=== PATIENT | female | born 1985 | race Caucasian/White ===

== ENCOUNTER 2022-02-01 16:39 | Inpatient (IN) ==
[2022-02-01] MEDS ORDERED: LACTATED RINGER'S 1,000 ML IV PRN (17:33)
[2022-02-01] MEDS ORDERED: OXYTOCIN 30 UNITS/500 ML BAG IV PRN (17:33)
--- NOTE | 2022-02-01 17:41 | Anesthesiology Consultation ---
Date of Service February 01, 2022 History Height/Weight Height: 5 ft 6 in Weight: 77.111 kg Allergies Allergy/AdvReac Type Severity Reaction Status Date / Time No Known Allergies Allergy Verified 01/29/22 10:03 Medications Home Medications Medication Instructions Recorded Confirmed Last Taken prenat.vits,jud,vtd-[id number]-[id number] 1 tab PO DAILY 01/29/21 01/29/22 02/01/22 08:00 breast pump #1 ea 01/22/22 01/29/22 Unknown Past Medical History Medical History History of chicken pox Psoriasis Past Family History Family History Grandfather (Maternal) Colorectal cancer great grandfather Denies family history of Ovarian cancer Breast cancer Past Surgical History Surgical History S/P wisdom tooth extraction Social History Smoking Status: Never smoker Hx Alcohol Use: No Hx Substance Use: No Physical Exam Vital Signs Last Vital Signs Temp 36.7 C 02/01/22 16:52 Pulse 113 H 02/01/22 17:37 Resp 20 02/01/22 16:52 BP 144/80 H 02/01/22 17:37 Pulse Ox 97 02/01/22 17:32
[2022-02-01 17:59] LABS: Hematocrit (blood only) 39.1 % (37-47); Hemoglobin 13.9 g/dL (12.0-16.0); Mean Corpuscular Hemoglobin 31.9 pg (25-34); Mean Corpuscular Hgb Conc 35.5 g/dL (32-36); Mean Corpuscular Volume 89.7 fL (80-100); Mean Platelet Volume 10.6 fL (7.4-10.4); Platelet Count 167 K/uL (130-400); RDW Standard Deviation 42.5 fL (36.4-46.3); Red Blood Count 4.36 M/uL (4.2-5.4); White Blood Count 14.57 K/uL (4.8-10.8)
[2022-02-01] MEDS ORDERED: SODIUM CHLORIDE 0.9% INJ 10 ML VIAL ONE (18:21)
[2022-02-01] MEDS ORDERED: ePHEDrine sulfate 50 MG/ML AMP ONE (18:21)
[2022-02-01] MEDS ORDERED: BUPIVACAINE 0.25% 30 ML VIAL ONE (18:21)
[2022-02-01] MEDS ORDERED: fentaNYL citrate 100 MCG/2 ML VIAL ONE (18:21)
[2022-02-01] MEDS ORDERED: fentaNYL 2MCG/ML ROPIVACAINE 1.25MG/ML 100 ML BAG EPI ONE (18:22)
--- NOTE | 2022-02-01 18:40 | Anesthesiology Consultation ---
Date of Service February 01, 2022 Assessment & Plan (1) Encounter for pre-operative examination: Chart Review Chart Review: Acceptable Risk for Labor Epidural History Height/Weight Height: 5 ft 6 in Weight: 77.111 kg Allergies Allergy/AdvReac Type Severity Reaction Status Date / Time No Known Allergies Allergy Verified 01/29/22 10:03 Medications Home Medications Medication Instructions Recorded Confirmed Last Taken prenat.vits,jud,xoj-xiff-qdcje 1 tab PO DAILY 01/29/21 01/29/22 02/01/22 08:00 breast pump #1 ea 01/22/22 01/29/22 Unknown Past Medical History Medical History History of chicken pox Psoriasis Past Family History Family History Grandfather (Maternal) Colorectal cancer great grandfather Denies family history of Ovarian cancer Breast cancer Past Surgical History Surgical History S/P wisdom tooth extraction Social History Smoking Status: Never smoker Hx Alcohol Use: No Hx Substance Use: No Physical Exam Vital Signs Last Vital Signs Temp 36.7 C 02/01/22 16:52 Pulse 117 H 02/01/22 18:36 Resp 20 02/01/22 16:52 BP 133/88 02/01/22 18:25 Pulse Ox 92 02/01/22 18:36 Testing Laboratory Results 02/01/22 17:46
[2022-02-01] MEDS ORDERED: ONDANSETRON INJ 2 MG/ML 2 ML VIAL IV PRN (18:56)
[2022-02-01] MEDS ORDERED: NALOXONE HCL 1 MG in SODIUM CHLORIDE 0.9% 1000ML 1,000 ML IV PRN (18:56)
[2022-02-01] MEDS ORDERED: ePHEDrine sulfate 50 MG/ML AMP IV PRN (18:56)
[2022-02-01] MEDS ORDERED: fentaNYL 2MCG/ML ROPIVACAINE 1.25MG/ML 100 ML BAG EPI PRN (18:56)
[2022-02-01] MEDS ORDERED: NALOXONE HCL 0.4 MG/1 ML VIAL/CARP IV PRN (18:56)
--- NOTE | 2022-02-02 00:30 | Delivery Summary ---
Vaginal Delivery Summary Date of Service February 02, 2022 Vaginal Delivery Summary Spontaneous vaginal delivery the patient arrived in active labor and intact membranes at 5 cm 38+ weeks requested epidural and then membranes broke spontaneously she progressed to fully dilated and pushed a baby out in occiput anterior position fluid was clear there was no nuchal cord gentle traction with no excessive force revealed vigorous male cord clamped and cut cord blood obtained placenta removed with gentle traction second-degree tear repaired with 3-0 Vicryl oxytocin but started postdelivery of the placenta estimated blood loss 200 mL sponge and instrument counts correct
[2022-02-02] MEDS ORDERED: DIPHTHERIA/TETANUS/PERTUSSIS 0.5 ML SYR/VIAL IM ONE (00:41)
[2022-02-02] MEDS ORDERED: HYDROCORTISONE ACETATE 25 MG SUPP PR PRN (00:41)
[2022-02-02] MEDS ORDERED: OXYTOCIN 30 UNITS/500 ML BAG IV PRN (00:41)
[2022-02-02] MEDS ORDERED: ACETAMINOPHEN 325 MG TAB PO PRN (00:41)
[2022-02-02] MEDS ORDERED: BENZOCAINE 20% AER SPR 82.5 GM CAN EXT PRN (00:41)
[2022-02-02] MEDS ORDERED: bisacodyL 10 MG SUPP PR PRN (00:41)
[2022-02-02] MEDS ORDERED: oxyCODONE/ACETAMINOPHEN 5mg/325mg TAB PO PRN (00:41)
[2022-02-02] MEDS: IBUPROFEN 600 MG TAB PO PRN ×3 (03:52→15:02)
--- NOTE | 2022-02-02 07:19 | Obstetrical Progress Note ---
Date of Service February 02, 2022 Assessment & Plan (1) Encounter for pre-operative examination: ppd 0, ccc Subjective Ambulation: ambulating normally Voiding: no voiding problems Passing Gas:: Yes Diet Tolerance:: regular diet Lochia:: Small Results & Data ([facility]) Vital Signs (Past 12 Hours) Vital Signs Temp Pulse Pulse Resp BP BP Pulse Ox 02/02/22 03:30 98.6 F 112 H 16 128/70 97 02/02/22 02:27 98.2 F 109 H 18 126/70 02/02/22 02:12 116 H 119/57 L 02/02/22 01:57 114 H 120/58 L 02/02/22 01:42 110 H 120/62 02/02/22 01:27 112 H 117/73 02/02/22 01:12 116 H 118/69 02/02/22 00:57 123 H 18 136/69 02/02/22 00:56 173 H 79 L 02/02/22 00:42 114 H 20 127/59 L 02/02/22 00:27 121 H 18 148/70 H 99 02/02/22 00:22 127 H 97 02/02/22 00:20 129 H 160/67 H 02/02/22 00:17 125 H 97 02/02/22 00:12 152 H 18 97 02/02/22 00:07 168 H 99 02/02/22 00:05 139 H 157/68 H 02/02/22 00:02 140 H 98 02/01/22 23:57 142 H 97 02/01/22 23:52 146 H 98 02/01/22 23:47 166 H 98 02/01/22 23:42 146 H 96 02/01/22 23:37 153 H 96 02/01/22 23:34 135 H 94 02/01/22 23:32 147 H 97 02/01/22 23:27 154 H 97 02/01/22 23:22 147 H 96 02/01/22 23:20 146 H 143/69 H 02/01/22 23:17 141 H 97 02/01/22 23:12 127 H 97 02/01/22 23:07 133 H 143/69 H 97 02/01/22 23:02 129 H 97 02/01/22 22:57 133 H 96 07/03/22 22:52 134 H 96 02/01/22 22:50 142 H 114/65 02/01/22 22:47 134 H 96 02/01/22 22:42 132 H 96 02/01/22 22:37 130 H 96 02/01/22 22:34 134 H 115/62 02/01/22 22:32 141 H 96 02/01/22 22:27 149 H 96 02/01/22 22:23 98.4 F 20 02/01/22 22:22 154 H 97 02/01/22 22:20 130 H 115/63 02/01/22 22:17 126 H 96 02/01/22 22:12 136 H 97 02/01/22 22:07 135 H 98 02/01/22 22:02 117 H 97 02/01/22 21:57 135 H 97 02/01/22 21:52 117 H 97 02/01/22 21:51 125 H 121/75 02/01/22 21:47 121 H 97 02/01/22 21:42 114 H 97 02/01/22 21:37 99 H 97 02/01/22 21:35 105 H 117/77 02/01/22 21:32 100 H 96 02/01/22 21:27 108 H 97 02/01/22 21:22 108 H 98 02/01/22 21:20 103 H 108/73 02/01/22 21:17 102 H 97 02/01/22 21:12 94 H 97 02/01/22 21:07 99 H 98 02/01/22 21:05 88 119/74 02/01/22 21:02 93 H 96 02/01/22 20:57 98 H 97 02/01/22 20:52 92 H 98 02/01/22 20:50 108 H 133/74 02/01/22 20:47 89 97 02/01/22 20:42 86 97 02/01/22 20:37 89 98 02/01/22 20:36 98.6 F 93 H 18 131/79 02/01/22 20:32 93 H 98 02/01/22 20:27 81 98 02/01/22 20:22 83 97 02/01/22 20:21 80 118/67 02/01/22 20:17 79 99 02/01/22 20:12 93 H 97 02/01/22 20:07 85 96 07/03/22 20:06 101 H 116/74 02/01/22 20:02 82 97 02/01/22 19:57 82 98 02/01/22 19:52 88 98 02/01/22 19:50 92 H 108/61 02/01/22 19:47 81 98 02/01/22 19:42 84 99 02/01/22 19:37 96 H 98 02/01/22 19:36 90 115/63 02/01/22 19:32 88 98 02/01/22 19:27 95 H 98 02/01/22 19:22 100 H 97 02/01/22 19:20 93 H 112/61
--- NOTE | 2022-02-02 07:56 | Anesthesia Procedure Note ---
Date of Service February 02, 2022 Anesthesia Post Epidural Note Vital Signs Vital Signs: Temp Pulse Resp BP Pulse Ox 37.0 C 112 H 16 128/70 97 02/02/22 03:30 02/02/22 03:30 02/02/22 03:30 02/02/22 03:30 02/02/22 03:30 Notes Mental Status: alert / awake / arousable Nausea / Vomiting: adequately controlled Pain: adequately controlled Airway Patency, RR, SpO2: stable & adequate BP & HR: stable & adequate Hydration State: stable & adequate Neuraxial Anesthesia: was administered and sensory block is resolving Anesthetic Complications: no major complications apparent and Pt Satisfied with anesthetic care Epidural: Removed without complications and With tip intact
[2022-02-02] MEDS: PRENATAL VITAMIN 1 TAB PO SCH (07:59)
[2022-02-02] MEDS: DOCUSATE SODIUM 100 MG CAP PO SCH ×2 (07:59→21:03)
[2022-02-03] MEDS: IBUPROFEN 600 MG TAB PO PRN ×3 (05:34→18:51)
[2022-02-03 06:34] LABS: Hematocrit (blood only) 34.5 % (37-47); Hemoglobin 11.6 g/dL (12.0-16.0); Mean Corpuscular Hemoglobin 30.8 pg (25-34); Mean Corpuscular Hgb Conc 33.6 g/dL (32-36); Mean Corpuscular Volume 91.5 fL (80-100); Mean Platelet Volume 10.1 fL (7.4-10.4); Platelet Count 146 K/uL (130-400); RDW Coefficient of Variation 13.5 % (11.5-14.5); RDW Standard Deviation 44.9 fL (36.4-46.3); Red Blood Count 3.77 M/uL (4.2-5.4); White Blood Count 13.97 K/uL (4.8-10.8)
[2022-02-03] MEDS: PRENATAL VITAMIN 1 TAB PO SCH (08:20)
[2022-02-03] MEDS: DOCUSATE SODIUM 100 MG CAP PO SCH ×2 (08:21→20:00)
--- NOTE | 2022-02-03 08:29 | Obstetrical Progress Note ---
Date of Service February 03, 2022 Assessment & Plan (1) Encounter for care and examination after delivery: satisfactory progress having some issues so would like to stay until tomorrow AM if possible. Subjective Ambulation: ambulating normally Voiding: no voiding problems Passing Gas:: Yes Diet Tolerance:: regular diet Lochia:: Small Feeding Type:: breast feeding (some latch issues but otherwise doing well. ) Review of Systems All systems reviewed & are unremarkable except as noted in HPI & below Physical Exam Constitutional WD/WN, vitals as above Psychiatric A+Ox3, euthymic affect Genitourinary OB Exam Abdomen: + fundal height Fundus: + firm and + relation to umbilicus (2 below ) Results & Data ([facility]) Vital Signs (Past 12 Hours) Vital Signs Temp Pulse Resp BP Pulse Ox 02/03/22 07:45 97.7 F 84 18 120/84 99 02/03/22 04:00 97.7 F 75 18 113/75 02/03/22 01:29 97.7 F 80 18 100/65
[2022-02-03] MEDS ORDERED: bisacodyL 5 MG TABEC PO SCH (20:00)
[2022-02-04] MEDS: IBUPROFEN 600 MG TAB PO PRN ×2 (01:34→08:06)
--- NOTE | 2022-02-04 07:07 | Obstetrical Progress Note ---
Date of Service February 04, 2022 Assessment & Plan (1) Encounter for care and examination after delivery: Doing well. Plan d/c home. f/u 6 weeks. Day #:: 2 Subjective Ambulation: ambulating normally Voiding: no voiding problems Passing Gas:: Yes Diet Tolerance:: regular diet Lochia:: Small Feeding Type:: breast feeding Feels well. No complaints this am. Physical Exam Constitutional WD/WN, vitals as above Cardiovascular Extremities: no calf tenderness and no edema Gastrointestinal (Abdomen) soft, nt, nd, ff/nt at u Results & Data ([facility]) Vital Signs (Past 12 Hours) Vital Signs Temp Pulse Resp BP 02/04/22 00:00 36.5 C 72 18 113/77 02/03/22 20:00 36.5 C 83 18 113/75
[2022-02-04] MEDS: PRENATAL VITAMIN 1 TAB PO SCH (08:04)
[2022-02-04] MEDS: DOCUSATE SODIUM 100 MG CAP PO SCH (08:04)
== END 2022-02-04 10:30 | disposition home or self-care (01) | DRG 807 ==
LOC: OPB 16:39 → 4S1 16:40 → 4E2 02-02 03:02

== ENCOUNTER 2024-11-29 23:51 | Inpatient (IN) ==
[2024-11-30] MEDS ORDERED: LACTATED RINGER'S 1,000 ML IV PRN (00:09)
[2024-11-30] MEDS ORDERED: LIDOCAINE 1% LOCAL 20 ML VIAL INFIL PRN (00:09)
[2024-11-30] MEDS ORDERED: OXYTOCIN 30 UNITS/NSS 30 UNITS/500 ML BAG IV PRN ×2 (00:09→00:48)
--- NOTE | 2024-11-30 00:25 | Delivery Summary ---
Vaginal Delivery Summary Date of Service November 30, 2024 Vaginal Delivery Summary DIAGNOSES: 1. Coy intrauterine at 39w4d gestation. 2. Spontaneous onset of labor. 3. Group B Streptococcus Neg. PROCEDURE: Spontaneous vaginal delivery without laceration. SURGEON: Odette Nguyen MD. CAKE WASHER: None. ESTIMATED BLOOD LOSS: 100 mL. COMPLICATIONS: None. PLACENTA: Spontaneous and intact with a 3-vessel cord. DISPOSITION: Stable to labor and delivery. DESCRIPTION: The patient arrived in active labor via ER and was pushing involuntarily. I was called by L&D and arrived from home as quickly as possible, however the infant was delivered 5 minutes prior to my arrival at the bedside, with nursing staff in attendance. Per DANIEL Billings it delivered vertex and OA with a compound arm presentation, having one hand alongside the cheek. It was vigorous and moving all extremities immediately upon delivery. The cord was doubly clamped and then cut. The infant was wrapped and attended- to at maternal abdomen by nursery staff. I gloved in for delivery of the placenta, which delivered spontaneously and was noted to be intact and with a 3VC. The cervix, vagina and perineum were examined and were found to be without defect requiring repair. The fundus was firm and lochia minimal immediately after delivery. [facility] Vaginal Delivery Charge Vaginal Delivery Codes: 23308 global code for the antepartum, delivery, and post-
[2024-11-30] MEDS: OXYTOCIN 10 UNITS/ML VIAL ONE (00:33)
[2024-11-30] MEDS ORDERED: ACETAMINOPHEN 325 MG TAB PO PRN (00:48)
[2024-11-30] MEDS ORDERED: HYDROCORTISONE ACETATE 25 MG SUPP PR PRN (00:48)
[2024-11-30] MEDS ORDERED: LACTATED RINGER'S 1,000 ML IV SCH (00:48)
[2024-11-30] MEDS ORDERED: oxyCODONE/ACETAMINOPHEN 5mg/325mg TAB PO PRN (00:48)
[2024-11-30] MEDS ORDERED: DIPHTHER/TETAN/PERTUS Vaccine (Tdap, Adol/Adult) 0.5mL IM ONE (00:48)
[2024-11-30] MEDS ORDERED: bisacodyL 10 MG SUPP PR PRN (00:48)
[2024-11-30] MEDS ORDERED: BENZOCAINE 20% SPRY 85 APPLN/85 GM CAN EXT PRN (00:48)
[2024-11-30 00:56] LABS: Hematocrit (blood only) 40.2 % (37.0-47.0); Hemoglobin 13.9 g/dl (12.0-16.0); Mean Corpuscular Hemoglobin 30.8 pg (25.0-34.0); Mean Corpuscular Hgb Conc 34.6 g/dL (32.0-36.0); Mean Corpuscular Volume 89.1 fL (80.0-100.0); Mean Platelet Volume 11.1 fL (9.4-12.4); Platelet Count 110 K/uL (130-400); RDW Coefficient of Variation 12.8 % (11.5-14.5); RDW Standard Deviation 41.3 fL (36.4-46.3); Red Blood Count 4.51 M/uL (4.20-5.40)
[2024-11-30] MEDS: PRENATAL VITAMIN 1 TAB PO SCH (08:35)
[2024-11-30] MEDS: IBUPROFEN 600 MG TAB PO PRN (08:35)
[2024-11-30] MEDS: DOCUSATE SODIUM 100 MG CAP PO SCH (08:36)
[2024-11-30 10:15] VITALS: RESP 16
[2024-12-01 00:24] VITALS: O2SAT 96
[2024-12-01 07:07] LABS: Hematocrit (blood only) 41.2 % (37.0-47.0); Hemoglobin 14.1 g/dl (12.0-16.0); Mean Corpuscular Hemoglobin 30.8 pg (25.0-34.0); Mean Corpuscular Hgb Conc 34.2 g/dL (32.0-36.0); Mean Platelet Volume 10.5 fL (9.4-12.4); Platelet Count 130 K/uL (130-400); RDW Coefficient of Variation 12.9 % (11.5-14.5); RDW Standard Deviation 42.4 fL (36.4-46.3); Red Blood Count 4.58 M/uL (4.20-5.40); White Blood Count 11.03 K/ul (4.8-10.8)
--- NOTE | 2024-12-01 07:42 | Obstetrical Progress Note ---
Date of Service December 01, 2024 Assessment & Plan (1) Elderly multigravida: PPD#1, doing well, desires DC home. Subjective Ambulation: ambulating normally Voiding: no voiding problems Diet Tolerance:: regular diet Lochia:: Moderate Review of Systems All systems reviewed & are unremarkable except as noted in HPI & below Physical Exam Constitutional WD/WN, vitals as above no acute distress Respiratory normal respiratory effort Cardiovascular Rate/Rhythm: regular rate and regular rhythm Gastrointestinal (Abdomen) Inspection/Auscultation: abdomen normal to inspection; abdomen not distended Percussion/Palpation: abdomen soft Genitourinary OB Exam Abdomen: + fundal height Fundus: + firm; not tender Results & Data Vital Signs (Past 12 Hours) Vital Signs Temp Pulse Resp BP Pulse Ox O2 Del Method 12/01/24 00:23 36.5 C 73 16 115/69 96 Room Air
[2024-12-01 09:18] VITALS: BP 112/78; PULSE 82; TEMP 97.5
[2024-12-01] MEDS ORDERED: bisacodyL 5 MG TABEC PO SCH (20:00)
== END 2024-12-01 11:32 | disposition home or self-care (01) | DRG 807 ==
LOC: OPB 23:51 → 4S1 23:52 → 4E2 11-30 02:58